=== PATIENT | male | born 2000 | race Hispanic/Latino ===

== ENCOUNTER 2025-05-19 04:25 | Emergency (ER) | payer MEDICAID, SELFPAY ==
[2025-05-19] VITALS (18 sets, daily range): BP systolic 110–154; BP diastolic 65–91; PULSE 68–90; RESP 14–18; TEMP 36.7–37; O2SAT 92–100
--- NOTE | ~2025-05-19 | XR_ITS ---
EXAMINATION: XR chest 1V portable 05/19/2025 05:07 INDICATION: Weakness PROCEDURE: AP portable chest COMPARISON: No prior studies for comparison. FINDINGS: The lungs are clear. The cardiomediastinal silhouette is within normal limits. There are no pleural effusions. There is no pneumothorax suspected. IMPRESSION: 1: NO ACUTE CARDIOPULMONARY DISEASE. Reviewed, dictated and finalized at location O.
--- OUTSIDE RECORDS SUMMARY | 2025-05-19 04:42 | XMS_ITS | Clinical Summary ---
Author Organization [facility] Address [address] [place] [address] Care Team Providers Care Open [employer]ar[employer] Supervisor Name Role Phone Cherelle Stewart Primary Care Provider Unavailabl e Source Comments [facility] is fully rolled out on [facility]. Psych encounters are restricted.[facility] Allergies No known active allergies Medications No known medications Social History Tobacco Use Types Packs/Day Years Used Date Smoking Tobacco: Never Assessed Alcohol Use Standard Drinks/Week Comments Not Asked 0 (1 standard drink = 0.6 oz pur e alcohol) socially Housing Insecurity Answer Date Recorded Do you have housing? Yes 12/25/2023 Are you worried about losing your housing? No 12/25/2023 Food Needs Answer Date Recorded In the past 12 months, did t he food you bought just not last and you didn't have money to get more? No 12/25/2023 In the past 12 months, did y ou worry that your food would run out before you got money to buy more? No 12/25/2023 Transportation Answer Date Recorded In the past 12 months, has l ack of transportation kept you from medical appointments, getting your medicines, non-medical meetings or appointments, work, or from getting things that you need? No 12/25/2023 Utilities Answer Date Recorded Within the past 12 months, h ave you or your family members you live with been unable to get utilities (heat, electricity) when it was really needed? No 12/25/2023 Sex and Gender Information Value Date Recorded Sex Assigned at Not on file Legal Sex Male 1:03 PM EST Gender Identity Not on file Sexual Orientation Not on file Last Filed Vital Signs Vital Sign Reading Time Taken Comments Blood Pressure 118/80 12/25/2023 5:28 PM EDT Pulse 86 12/25/2023 9:06 PM EDT Temperature 37.1 C (98.7 F) 12/25/2023 5:28 PM EDT Respiratory Rate 16 12/25/2023 5:28 PM EDT Oxygen Saturation 96% 12/25/2023 5:28 PM EDT Inhaled Oxygen Concentration - - Weight 83 kg (183 lb) 12/25/2023 5:28 PM EDT Height 160 cm (5' 3) 12/25/2023 5:28 PM EDT Body Mass Index 32.42 12/25/2023 5:28 PM EDT Plan of Treatment Not on file Insurance [facility] MEDICAID [place]ID [place] Care Teams 

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
--- NOTE | 2025-05-19 04:48 | ECG_ITS ---
Test Date: 2025-05-19 05:04:35 Measurements Intervals [place] Rate: 90 P: 63 MA: 147 QRS: 65 QRSD: 100 T: 35 QT: 345 QTc: 424 Interpretive Statements SINUS RHYTHM WITH OCCASIONAL VENTRICULAR PREMATURE COMPLEXES NONSPECIFIC ST-T WAVE ABNORMALITY- INFERIOR LEADS BASELINE ARTIFACT- II, III BORDERLINE ECG No previous ECG available for comparison Electronically Signed On 05-19-2025 06:32:02 CDT by Du Viera D.O.
[2025-05-19 05:06] LABS: Hematocrit 47.2 % (40.0-54.0); Hemoglobin 16.7 g/dL (14.0-18.0); Immature Granulocyte Percent A 0.1 % (0.0-0.0); Lymphocytes Absolute Auto 1.58 K/mm3 (1.10-4.50); Mean Corpuscular HGB Conc 35.4 g/dL (32-36); Mean Corpuscular Hemoglobin 29.9 pg (27.0-31.0); Mean Corpuscular Volume 84.6 fL (78.0-102.0); Nucleated Red Blood Cells Absolute Auto 0.00 K/mm3 (0.00-0.00); Nucleated Red Blood Cells Perc 0.0 % (0-0.0); Platelet Count Result 231 K/mm3 (150-420); Red Blood Count 5.58 M/mm3 (4.70-6.10); White Blood Count 7.8 K/mm3 (4.8-10.8)
[2025-05-19 05:19] LABS: Alanine Aminotransferase 26 U/L (6-50); Albumin Level 5.2 g/dL (3.5-5.1); Alkaline Phosphatase 73 U/L (38-126); Anion Gap 12 mmol/L (4-12); Aspartate Amino Transferase 27 U/L (17-59); Bilirubin,Total 1.4 mg/dL (0.2-1.3); Blood Urea Nitrogen 12 mg/dL (9-20); Calcium 10.3 mg/dL (8.4-10.2); Carbon Dioxide 28 mmol/L (22-30); Chloride 101 mmol/L (98-107); Creatine Kinase 187 U/L (55-170); Estimated CRCL calculation 94 ml/min; Estimated Glomerular Filt Rate > 60; Glucose 115 mg/dL (65-110); Osmolality Calculated 292 mOsm/kg (285-295); Potassium 3.9 mmol/L (3.4-5.0); Sodium 141 mmol/L (137-145); Total Protein 8.0 g/dL (6.3-8.2)
[2025-05-19 05:50] LABS: Thyroid Stimulating Hormone 1.150 uIU/mL (0.465-4.680)
[2025-05-19 08:58] LABS: Add Urine Microscopic? YES; Appearance Urine Clear (Clear); Glucose Urine UA Negative (Negative); Leukocyte Esterase Ur Negative LEU/UL (Negative); Nitrate Urine Negative (Negative); Specific Grav Ur 1.020 (1.010-1.020)
--- NOTE | 2025-05-19 08:58 | PC.NURSE ---
[facility] police and state police call to locate pt suraj. suraj remains at [facility] [employer] [facility] in [place].
[2025-05-19 09:23] LABS: Cannabinoid Screen Urine Negative (Negative)
--- NOTE | 2025-05-19 09:45 | PC.NURSE ---
[place] police contacted, requested if they can take pt back to his van in [place]. declined transport
--- NOTE | 2025-05-19 10:56 | PC.NURSE ---
[place] police contacted again to see if they can take pt back to his van. informed officer that pt has been evaluated by [facility] and is stable and alert to be discharged. [place] police declined transport
== END 2025-05-19 11:04 | disposition home or self-care (01) ==
PROVIDERS: Emergency Medicine; Emergency Provider Internal Medicine Critical Care Medicine
DX: F41.9 Anxiety disorder, unspecified (principal)
CPT/HCPCS: 36415; 71045; 80053; 80307; 81001; 82077; 82550; 82948; 84443; 85025; 93005; 99283